=== PATIENT | female | born 1925 | race Caucasian/White ===

== ENCOUNTER 2017-05-02 16:04 | Inpatient (IN) | payer MEDICARE ==
--- NOTE | 2017-05-02 17:08 | RAD ---
FOUR VIEWS LEFT KNEE: Date: 05-02-17 Comparison: None. History: Fall, trauma, swelling, pain. FINDINGS: There is severe lateral compartment narrowing with lateral tibial plateau subchondral sclerosis and osteophyte formation. There is chondrocalcinosis of the medial compartment. There is no knee joint e ffusion. There is patellofemoral joint space narrowing with no displaced fracture or dislocation. Th ere is atherosclerotic calcification within the imaged left calf. IMPRESSION: Multilevel degenerative change. No displaced fracture or dislocation is seen. POS: ANA PAULA
--- NOTE | 2017-05-02 17:09 | RAD ---
THREE VIEWS RIGHT ANKLE: Indication: Fall, right ankle pain. FINDINGS: No acute fracture or subluxation is evident. There is soft tissue swelling of the ankle and hindfoot . Enthesopathic changes are seen of the calcaneus. Vascular calcifications are seen within the soft tissues. IMPRESSION: No acute osseous abnormality. POS: ANA PAULA
--- NOTE | 2017-05-02 17:11 | RAD ---
THREE VIEWS LEFT ANKLE: Date: 05-02-17 Comparison: None. History: Trauma, pain. FINDINGS: There is a transverse mildly distracted fracture at the base of the medial malleolus. There is an ob liquely oriented mildly displaced comminuted distal left fibular fracture extending into the distal left tibiofibular interspace. There is associated soft tissue swelling. Lateral exam demonstrates no evidence for dislocation. There is enthesophyte formation at the origin of the plantar aponeurosis and insertion of the Achilles tendon. IMPRESSION: Fracture deformities involving the distal left fibula/lateral malleolus and medial malleolus as abov e. Post reduction imaging and orthopedic consultation advised. POS: ANA PAULA
[2017-05-02] MEDS ORDERED: Acetaminophen 500 MG TAB ONE (17:17)
[2017-05-02] MEDS ORDERED: Ondansetron HCl/PF 4 MG/2 ML Vial ONE (17:25)
[2017-05-02] MEDS ORDERED: CEFAZOLIN/Water 2 GM/20 ML SYRINGE SLOW IVP SCH (19:30)
--- NOTE | 2017-05-02 19:37 | CON ---
DATE OF CONSULTATION: 05/02/2017 PRINCIPAL DIAGNOSIS: 1. Left trimalleolar ankle fracture. 2. Right lateral malleolus fracture. BRIEF HISTORY OF PRESENT ILLNESS: Patient is an 89-year-old lady who resides at [facility]. Earlier today, she sustained a ground level fall injuring both ankles. Upon arrival at [place], she was found to have gross deformity of the left ankle as well as swelling of the late ral ankle. X-rays were obtained and initially read as a left ankle with bimalleolar fracture; [facility], on closer inspection, this is a trimalleolar ankle fracture. She was also read as having a norm al right ankle; however, on evaluation found to have a nondisplaced fracture of the posterior aspect of the lateral malleolus. Patient did have a splint applied to the left ankle and orthopedic consu ltation requested for this pleasant lady who is being admitted to the trauma service. PAST MEDICAL HISTORY: Remarkable for hyperlipidemia. PAST SURGICAL HISTORY: Includes hysterectomy, appendectomy, and left wrist surgery. MEDICATIONS: Include Crestor, Wellbutrin, Xanax, clonazepam. ALLERGIES: FLOXIN and TRAMADOL. FAMILY HISTORY: Noncontributory. SOCIAL HISTORY: She is a nonsmoker, denies alcohol or recreational drug use. REVIEW OF SYSTEMS: Denies recent fevers, chills or sweats. Denies chest pain or shortness breath. Denies numbness or tingling in the lower extremities. PHYSICAL EXAMINATION: VITAL SIGNS: Temperature 98, heart rate of 93, respiratory rate of 20, and blood pressure of 160/74 . HEENT: Atraumatic, normocephalic. HEART: Shows a regular rate and rhythm with a 2/6 systolic ejection murmur. LUNGS: Clear to auscultation bilaterally with good breath sounds. ABDOMEN: Flat with normal bowel sounds. She is nontender. Her pelvis is stable. EXTREMITIES: Remarkable for bilateral upper extremities that are without deformity. She has intact sensation in the radial, median, and ulnar distributions bilaterally. Lower extremities remarkable for atraumatic hip and knee. She is found to have a left ankle with significant swelling medially and laterally, although I do not think this will be an issue to prevent surgery. She was found to h ave intact sensation to palpation over both dorsal and plantar surfaces of the foot. She has a 1+ d orsalis pedis pulse. She has tenderness to palpation over both medial and lateral malleoli. The [facility] lower extremity is also with atraumatic hip and knee. The ankle is remarkable for crepitation a t the lateral malleolus posteriorly. She is nontender to palpation at the deltoid ligament or media l malleolus. She has intact sensation dorsally and on the plantar surface 1+ dorsalis pedis pulse. X-RAYS: Three-view x-ray of the left ankle is remarkable for a trimalleolar ankle fracture and 3 vi ew x-ray of the right ankle to my reading is remarkable for a very small posterior aspect of the lat eral malleolus fracture with no displacement, no widening of the mortise and no lateral translation of the talus within the mortise. LABORATORY DATA: No labs are available at this time. We will obtain a CBC, chemistry panel and PT, PTT. EKG: Twelve-lead EKG has been ordered, but not performed yet. ASSESSMENT: The patient is a pleasant 89-year-old lady status post ground level fall sustaining a l eft trimalleolar ankle fracture and a nondisplaced small fracture of the right lateral malleolus. PLAN: At this time, the patient will be admitted. I have asked that the right ankle be placed in a walker boot. She may be weightbearing as tolerated on this ankle. We will plan on proceeding to [facility] operating room tomorrow afternoon for open reduction internal fixation of the left ankle. Today, I discussed with patient and family the risks and benefits of this procedure. The risks include, b ut are not limited to bleeding, infection, nerve injury, DVT, PE, loss of limb or life. Family and patient appeared comfortable with our discussion and plan.
[2017-05-02 19:49] LABS: #Basophils 0.1 thou/uL (0.0-0.2); #Lymphocytes 1.8 thou/uL (1.20-3.40); #Monocytes 0.7 thou/uL (0.11-0.59); #Neutrophils 6.5 thou/uL (1.40-6.50); %Basophils 0.6 % (0.0-1.0); %Eosinophils 0.2 % (0.0-10.0); %Lymphocytes 20.1 % (21.0-51.0); %Monocytes 7.2 % (0.0-10.0); Hematocrit 41.6 % (36.0-47.0); Mean Platelet Volume 8.5 fL (7.4-10.4); Red Blood Cell (RBC) Count 4.38 mill/uL (4.20-5.40); White Blood Cell (WBC) Count 9.1 thou/uL (4.8-10.8)
[2017-05-02 19:55] LABS: PTT 34.6 SEC (22.9-36.1); Prothrombin Time 12.9 SEC (12.0-14.7)
[2017-05-02 20:08] LABS: ALT (SGPT) 12 U/L (8-55); AST (SGOT) 14 U/L (5-34); Alkaline Phosphatase 69 U/L (40-150); Anion Gap 17 mmol/L (10-20); BUN (Urea Nitrogen) 15 mg/dL (9.8-20.1); Bilirubin, Total 0.5 mg/dL (0.2-1.2); Calc. Creatinine Clearance 0 mL/min (70-130); Calcium 9.7 mg/dL (7.8-10.44); Carbon Dioxide 22 mmol/L (23-31); Chloride 103 mmol/L (98-107); Estimated GFR-MDRD 65; Globulin 3.1 g/dL (2.4-3.5); Protein, Total 6.9 g/dL (6.0-8.3)
[2017-05-02] MEDS ORDERED: Ondansetron ODT 4 MG TAB SL PRN (20:44)
[2017-05-02] MEDS ORDERED: Ondansetron HCl/PF 4 MG/2 ML Vial IVP PRN ×2 (20:44→20:49)
[2017-05-02] MEDS ORDERED: hydrALAZINE 20 MG/ML VIAL SLOW IVP PRN (20:49)
[2017-05-02] MEDS ORDERED: Dextrose 50% Abboject 50 ML SYRINGE SLOW IVP PRN (20:49)
[2017-05-02] MEDS ORDERED: Ondansetron ODT 4 MG TAB PO PRN (20:49)
[2017-05-02] MEDS ORDERED: Dextrose 5% in Water 1,000 ML IV PRN (20:49)
--- NOTE | 2017-05-02 20:52 | RAD ---
FRONTAL VIEW CHEST: Indication: Pre-operative evaluation. FINDINGS: There is hyperinflation of the lungs with interstitial prominence bilaterally. The cardiac silhouett e is accentuated by spinal curvature and portable frontal technique. There is diffuse osseous demine ralization and degenerative change. Vascular calcification is present. IMPRESSION: Chronic interstitial opacities in each lung without evidence of lobar consolidation. POS: [facility]
--- NOTE | 2017-05-02 20:54 | RAD ---
LEFT ANKLE THREE VIEWS: Indication: Post splint evaluation. FINDINGS: There is a displaced and angulated distal fibular fracture. There is a displaced medial malleolar fr acture, and a posterior malleolar fracture. Overlying splint limits detail. IMPRESSION: Splinted distal tibial and fibular fractures. POS: ANA PAULA
[2017-05-02] MEDS: Famotidine/PF 20 mg/2ml Vial SLOW IVP SCH (21:37)
[2017-05-02] MEDS: Morphine PF 1 MG/ML SYR IV PRN (21:37)
[2017-05-02] MEDS: Sodium Chloride 0.9% 1,000 ML IV SCH (21:39)
[2017-05-02] MEDS: Famotidine 20 MG TAB PO SCH (23:25)
[2017-05-02] MEDS: MORPHINE 10 MG/ML SYRINGE IV PRN (23:34)
[2017-05-03] MEDS: MORPHINE 10 MG/ML SYRINGE IV PRN (02:01)
[2017-05-03 03:01] VITALS: BMI 26.6
[2017-05-03] MEDS ORDERED: diphenhydrAMINE 50 MG/ML VIAL IVP PRN (04:19)
[2017-05-03] MEDS ORDERED: diphenhydrAMINE 12.5 MG/5 ML UDCUP PO PRN (04:19)
[2017-05-03] MEDS: Morphine PF 1 MG/ML SYR IV PRN (04:35)
[2017-05-03 04:57] LABS: #Eosinphils 0.1 thou/uL (0.0-0.7); #Lymphocytes 2.3 thou/uL (1.20-3.40); #Monocytes 0.7 thou/uL (0.11-0.59); #Neutrophils 3.6 thou/uL (1.40-6.50); %Basophils 0.5 % (0.0-1.0); %Eosinophils 0.9 % (0.0-10.0); %Lymphocytes 33.9 % (21.0-51.0); %Monocytes 10.8 % (0.0-10.0); Hematocrit 36.2 % (36.0-47.0); Mean Platelet Volume 8.4 fL (7.4-10.4); Red Blood Cell (RBC) Count 3.78 mill/uL (4.20-5.40); White Blood Cell (WBC) Count 6.7 thou/uL (4.8-10.8)
--- NOTE | 2017-05-03 05:07 | HP-2 ---
DATE OF ADMISSION: 05/02/2017 ATTENDING PHYSICIAN: Dr. Antony Gross CHIEF COMPLAINT: Fall. HISTORY OF PRESENT ILLNESS: This is a pleasant 89-year-old woman who resides at [facility]. She reports that she had a fall earlier today , whereby she injured both ankles. She cannot recall the exact mechanism of the fall. The patient does currently use a walker. She had a fall 2 weeks ago and was using a cane at that time. It was recommended that she use a walker multimedia technician to avoid recurrent falls. Upon arrival at [place], she was found to have gross deformity of the left ankle as well as swelling to the lateral ankle. X-rays revealed left trimalleolar ankle fracture. Additionally, she was found to have a nondisplaced fracture of the posterior aspect of the lateral malleolus on the right. The patient is to be admitted to the Trauma Service. Orthopedic surgeon was consulted and evaluated the patient. The patient was placed in a splint on the left lower extremity and a boot on the right lower extremity. She will be admitted to the surgical floor with plans for surgery tomorrow. PAST MEDICAL HISTORY: 1. Anxiety. 2. Hyperlipidemia. PAST SURGICAL HISTORY: 1. Tonsillectomy. 2. Hysterectomy. 3. Appendectomy. 4. Left wrist surgery. MEDICATIONS: 1. Crestor 2.5 mg oral once daily at bedtime. 2. Wellbutrin 300 mg oral once daily. 3. Xanax 0.25 mg b.i.d. 4. Clonazepam 0.25 mg oral b.i.d. ALLERGIES: 1. AFLOXICIN. 2. TRAMADOL. FAMILY HISTORY: Noncontributory. SOCIAL HISTORY: The patient denies tobacco, alcohol or recreational drug use. REVIEW OF SYSTEMS: A 12 point review of systems was performed, all are negative except as indicated below. The patient endorses a moderate amount of pain in left ankle and a mild amount of pain in right ankle. She denies any pain elsewhere. Additionally, she denies fevers, chills, chest pain, shortness of breath, nausea, vomiting or numbness and tingling in the lower extremities. PHYSICAL EXAMINATION: VITAL SIGNS: Temperature 98 degrees Fahrenheit, heart rate of 93, respiratory rate of 20, and blood pressure 160/74. HEENT: Head is atraumatic, normocephalic. CARDIOVASCULAR: Regular rate and rhythm with 3/6 systolic ejection murmur with radiation to the axilla. RESPIRATORY: Lungs clear to auscultation bilaterally. No acute respiratory distress. Equal rise and fall of chest. ABDOMEN: Nontender to palpation. Normoactive bowel sounds, nondistended. Pelvis is stable. EXTREMITIES: Normal inspection of bilateral upper extremities, neurovascularly intact. On exam left ankle was splinted and right lower extremity was already placed in a boot. Bilateral lower extremities neurovascularly intact. The patient has dorsalis pedal pulses 1+. NEUROLOGIC: No focal deficits appreciated. Neurovascularly intact x4. X-RAYS: 1. Chest x-ray, chronic interstitial opacities in each lung without evidence of lobar consolidation. 2. Left knee x-ray, multilevel degenerative changes. No displaced fracture or dislocation seen. 3. Three view x-ray of left ankle remarkable for trimalleolar ankle fracture. 4. Three view x-ray of right ankle remarkable for very small posterior aspect lateral malleolus fracture with no displacement, no widening of the mortise, and no lateral translation of the talus within the mortise. LABORATORY DATA: 1. CBC reveals a white blood cell count 9.1, hemoglobin 13.8, hematocrit 41.6, platelet count 270. 2. CMP reveals sodium 138, potassium 4.0, chloride 103, bicarbonate 22, BUN 15 , creatinine 0.83, glucose 117, calcium 9.7, total bilirubin 0.5, AST 14, ALT 12 , alkaline phosphatase 69. Serum total protein 6.9. 3. PT 12.9, INR 1.0, PTT 34.6. ASSESSMENT: 1. Status post ground level fall. 2. Left trimalleolar ankle fracture. 3. Nondisplaced small fracture of right lateral malleolus. 4. Anxiety. 5. Hyperlipidemia. PLAN: The patient was admitted to the Trauma Service. She has been evaluated by Dr. Linton, orthopedic surgeon and there are plans to pursue surgery tomorrow. Currently, the left ankle was placed in a splint and the right ankle was placed in a walking boot. She was approved for weightbearing on the right ankle. Plan for pain control pre and postoperatively. We will continue to monitor the patient during the course of her hospital stay. The patient will be continued on home medications once no longer n.p.o. We will plan to facilitate inpatient rehab versus a short-term nursing facility. The patient was seen and evaluated with MARY ANN Quinones. The above plan was discussed with Dr. Antony Gross and he is in agreement. CAMERON
[2017-05-03 05:19] LABS: Anion Gap 9 mmol/L (10-20); BUN (Urea Nitrogen) 15 mg/dL (9.8-20.1); Calc. Creatinine Clearance 49 mL/min (70-130); Calcium 9.1 mg/dL (7.8-10.44); Carbon Dioxide 27 mmol/L (23-31); Chloride 106 mmol/L (98-107); Estimated GFR-MDRD 65
[2017-05-03] MEDS: Sodium Chloride 0.9% 1,000 ML IV SCH ×2 (07:53→08:14)
[2017-05-03] MEDS: Famotidine 20 MG TAB PO SCH ×2 (08:05→22:22)
[2017-05-03] MEDS: Famotidine/PF 20 mg/2ml Vial SLOW IVP SCH ×2 (08:08→22:07)
[2017-05-03] MEDS ORDERED: MORPHINE 10 MG/ML SYRINGE IV SCH (11:30)
[2017-05-03] MEDS ORDERED: Fentanyl 100 MCG/2 ML VIAL ONE ×3 (14:06→16:21)
[2017-05-03] MEDS ORDERED: Midazolam HCl 2 mg/2 ml Vial ONE (14:32)
[2017-05-03] MEDS ORDERED: Dexamethasone 4 mg/ml Vial ONE (14:32)
[2017-05-03] MEDS ORDERED: CEFAZOLIN/Water 2 GM/20 ML SYRINGE ONE (15:01)
[2017-05-03] MEDS ORDERED: Zolpidem Tartrate 5 MG TAB PO PRN (15:23)
[2017-05-03] MEDS ORDERED: Ondansetron HCl/PF 4 MG/2 ML Vial IVP PRN (15:23)
[2017-05-03] MEDS ORDERED: Promethazine HCl 25 MG/ML VIAL IM PRN (15:23)
[2017-05-03] MEDS ORDERED: traMADol HCl 50 MG TAB PO PRN ×2 (15:23)
[2017-05-03] MEDS ORDERED: Ropivacaine 0.2% 550 ML 550 ML NERVE BLCK SCH (15:23)
[2017-05-03] MEDS ORDERED: HYDROcodone/Acetaminophen 10/325 mg Tablet PO PRN ×2 (15:23)
[2017-05-03] MEDS ORDERED: Fentanyl 100 MCG/2 ML VIAL IV PRN (15:24)
[2017-05-03] MEDS ORDERED: Ropivacaine 0.2% HCl/PF 20 ML ONE (15:28)
[2017-05-03] MEDS ORDERED: Neomycin-Polymyxin 1 ML AMP ONE (16:26)
[2017-05-03] MEDS ORDERED: Bupivacaine PF 0.5% 30 ML VIAL ONE (16:26)
[2017-05-03] MEDS ORDERED: Ondansetron HCl/PF 4 MG/2 ML Vial ONE (16:51)
[2017-05-03] MEDS ORDERED: Propofol 200 MG/20 ML VIAL ONE (16:51)
[2017-05-03] MEDS ORDERED: Lidocaine 1% PF 5 ML VIAL ONE (16:51)
--- NOTE | 2017-05-03 21:29 | PRG ---
DATE OF SERVICE: 05/03/2017 ATTENDING PHYSICIAN: Antony Gross D.O. SUBJECTIVE: This is an 89-year-old female, who fell from a ground-level fall, injuring the both joao ateral ankles. OBJECTIVE: VITAL SIGNS: Temperature 97.5, heart rate 85, respiratory rate 18, 97%, 100/64 blood pressure. GENERAL: No acute distress. Appears to be comfortable. PULMONARY: Clear bilaterally via auscultation. ABDOMEN: Soft, nontender, nondistended. CARDIOVASCULAR: S1, S2, regular rate and rhythm. EXTREMITIES: Neurovascularly intact x4. LABORATORY FINDINGS: WBC 6.7, hemoglobin is 12.2, hematocrit 32.2, and platelet count 240. Order Entry Administrator ry: Sodium 138, potassium 3.8, chloride 106, bicarbonate 27, BUN 15, creatinine 0.83. Glucose 123. ASSESSMENT AND PLAN: An 89-year-old female with status post fall, bilateral ankle injuries op erative fixation today with Orthopedics. The patient postoperatively will manage her pain. We will optimize and continue to maintain her medical management at this time. No other acute events were noted. The patient was seen by Dr. Gross at bedside, who agrees with the above plan.
[2017-05-03] MEDS ORDERED: CEFAZOLIN 1 GM VIAL SLOW IVP SCH (22:00)
[2017-05-03] MEDS ORDERED: Sodium Chloride 0.9% 1,000 ML IV SCH (23:45)
[2017-05-04] MEDS: Ketorolac Tromethamine 30 MG/ML VIAL IVP PRN ×2 (01:19→08:22)
[2017-05-04] MEDS: CEFAZOLIN 1 GM, Syringe 2.5 ML in Sterile Water 7.5 ML SLOW IVP SCH ×3 (01:59→17:48)
[2017-05-04] MEDS ORDERED: Hydrocortisone Sod Succ/PF 100 mg/2 ml Vial IVP SCH (02:00)
[2017-05-04] MEDS: Sodium Chloride 0.9% 1,000 ML IV SCH ×3 (05:01→21:56)
--- NOTE | 2017-05-04 08:06 | RAD ---
INTRAOPERATIVE FLUOROSCOPY: History: Fracture. ORIF. Exposure: 0.489 mGy*cm\S\2, 32 seconds. FINDINGS: Three fluoroscopic images demonstrate internal fixation hardware at the level of the left distal tib ia and fibula. IMPRESSION: Internal fixation hardware. POS: ANA PAULA
[2017-05-04] MEDS: Famotidine/PF 20 mg/2ml Vial SLOW IVP SCH (08:14)
[2017-05-04] MEDS ORDERED: traMADol HCl 50 MG TAB PO PRN (09:13)
[2017-05-04] MEDS: Famotidine 20 MG TAB PO SCH ×2 (10:11→19:56)
[2017-05-04] MEDS: traMADol HCl 50 MG TAB PO SCH ×2 (10:22→17:21)
[2017-05-04] MEDS: Acetaminophen 325 MG TAB PO SCH ×3 (12:04→21:56)
[2017-05-04] MEDS: Hydrocortisone Sod Succ/PF 100 mg/2 ml Vial IVP SCH ×2 (12:05→17:32)
--- NOTE | 2017-05-04 12:12 | PRG ---
DATE OF SERVICE: 05/04/2017 SUBJECTIVE: She is postoperative day 1 from open reduction and internal fixation left ankle. Overn ight she had hypertensive events that was treated with fluid resuscitation as well as some administr ation of albumin and hydrocortisone due to her having suspected adrenal insufficiency. Otherwise pa in is controlled. She is doing well overall now since the blood pressure has leveled out. OBJECTIVE: VITAL SIGNS: Temperature 97.9, heart rate 87, respirations 12, O2 sat 97% on 2 liters oxygen, blood pressure 94/57. GENERAL: In no acute distress at this time. LUNGS: Clear bilaterally to auscultation. CARDIOVASCULAR: S1 and S2. Regular rate and rhythm. ABDOMEN: Soft, nontender, nondistended. ASSESSMENT AND PLAN: This is an 89-year-old female status post fall, postoperative day 1 open reduc tion and internal fixation ankle. We will have Rehab and PT, OT seeing her. We will continue hydro cortisone about 25 IV q.6h., manage her fluid status. Continue to encourage p.o. Blood pressure se ems to be stable. Will have a.m. labs tomorrow. The patient has been seen by Dr. Gross and he agre es with the above plan.
[2017-05-04] MEDS ORDERED: HYDROcodone/Acetaminophen 5/325 mg Tablet PO PRN ×2 (18:40→18:41)
[2017-05-05] MEDS: Hydrocortisone Sod Succ/PF 100 mg/2 ml Vial IVP SCH ×2 (00:24→05:30)
[2017-05-05] MEDS: Acetaminophen 325 MG TAB PO SCH ×4 (04:13→22:22)
[2017-05-05 05:40] LABS: #Lymphocytes 1.2 thou/uL (1.20-3.40); #Monocytes 0.7 thou/uL (0.11-0.59); #Neutrophils 5.9 thou/uL (1.40-6.50); %Basophils 0.2 % (0.0-1.0); %Eosinophils 0.2 % (0.0-10.0); %Lymphocytes 15.3 % (21.0-51.0); %Monocytes 8.9 % (0.0-10.0); Hematocrit 33.9 % (36.0-47.0); Mean Platelet Volume 8.8 fL (7.4-10.4); Red Blood Cell (RBC) Count 3.51 mill/uL (4.20-5.40); White Blood Cell (WBC) Count 7.8 thou/uL (4.8-10.8)
[2017-05-05 06:01] LABS: Anion Gap 11 mmol/L (10-20); BUN (Urea Nitrogen) 16 mg/dL (9.8-20.1); Calc. Creatinine Clearance 57 mL/min (70-130); Calcium 8.8 mg/dL (7.8-10.44); Carbon Dioxide 20 mmol/L (23-31); Chloride 111 mmol/L (98-107); Estimated GFR-MDRD 76; Magnesium 1.8 mg/dL (1.6-2.6); Phosphorus 2.1 mg/dL (2.3-4.7)
[2017-05-05] MEDS: Sodium Chloride 0.9% 1,000 ML IV SCH (08:09)
[2017-05-05] MEDS: Famotidine 20 MG TAB PO SCH ×2 (08:11→22:16)
[2017-05-05] MEDS: Enoxaparin Sodium 40 MG/0.4 ML SYRINGE SC SCH (08:12)
[2017-05-05] MEDS ORDERED: Ibuprofen 800 MG TAB PO PRN (08:32)
[2017-05-05] MEDS ORDERED: Magnesium Citrate 300 ML BOT PO SCH (09:00)
[2017-05-05] MEDS: clonazePAM 0.5 MG TAB PO SCH ×3 (09:25→22:15)
[2017-05-05] MEDS: Polyethylene Glycol 3350 17 GM Packet PO SCH (09:26)
[2017-05-05] MEDS: Senokot S 8.6-50 MG TAB PO SCH ×3 (09:27→22:18)
[2017-05-05] MEDS: Bupropion 150 MG XL TAB PO SCH (10:41)
[2017-05-05] MEDS ORDERED: Furosemide 20 MG/2 ML VIAL SLOW IVP SCH (11:45)
[2017-05-05 12:23] LABS: Troponin I 0.031 ng/mL (< 0.028)
--- NOTE | 2017-05-05 12:49 | RAD ---
PORTABLE AP CHEST RADIOGRAPH: Date: 05-05-17 History: Elevated BMP. Tachycardia. Acute shortness of breath. Comparison: 05-02-17 FINDINGS: There has been interval development of pleural and parenchymal changes at the left lung base, likely related to moderate sized left pleural effusion and atelectasis. There is blunting of the right lat eral costophrenic angle suggesting a tiny right pleural effusion with atelectasis at the right lung base. Cardiac silhouette is obscured at the left lung base. Pulmonary vasculature is within normal l imits. Linear densities overlie the lateral right chest, probably related to overlying skin folds. V ascular calcifications are seen in the thoracic aorta. There is right convex scoliosis of the thorac ic spine. No other interval change. IMPRESSION: Interval development of bilateral pleural effusions with moderate sized left pleural effusion and ti ny right pleural effusions with associated atelectasis. POS: ANA PAULA
--- NOTE | 2017-05-05 13:36 | CON ---
DATE OF CONSULTATION: 05/05/2017 PRIMARY CARE PHYSICIAN: Leticia Rust M.D. REQUESTING PHYSICIAN: Antony Gross DO REASON FOR CONSULTATION: Medical management, shortness of breath. HISTORY OF PRESENT ILLNESS: Ms. Ornelas is a very pleasant 89-year-old white female who was admitted on 05/02/2017 overnight after falling and developing acute bilateral ankle pain. On evaluation in the ER, she was found to have left ankle deformity and x-rays revealed a trimalleolar fracture. She was admitted to the Trauma Service, Orthopedics was consulted and Dr. Linton did see her. She carlisle s had recent history of falls, the last being 2 weeks prior to admission. After orthopedic evaluation, she was taken to the operating room on 05/03/2017 for open reduction in ternal fixation. Intraoperative course was unremarkable. However, that night, postoperatively, she developed hypotension and required fluids resuscitation. She received 1 liter of bolus and has been on 100 mL per hour maintenance fluids since admission. Review of her I's and O's show total of 5.5 liters in's of admission and a net balance is around 2-1 /2 liters positive. She developed shortness of breath overnight 05/03/2017 to 05/04/2017. She has had increased heart r ate. They initially thought it might be her anxiety; however, this has not resolved and so we were consulted for recommendations. They did check a BNP which was elevated over 1000. She is also note d to have an increased heart rate and to be visibly dyspneic on exertion with orthopnea. EKG was done prior to my arrival, showed a sinus tachycardia with frequent PVCs. PAST MEDICAL HISTORY: 1. Anxiety with hyperlipidemia. 2. Denies any history of heart problems, high blood pressure, or other chronic medical problems. PAST SURGICAL HISTORY: Includes, 1. Total hysterectomy. 2. Tonsillectomy remotely. 3. Appendectomy remotely. 4. Left wrist repair. HOME MEDICATIONS: 1. Crestor 2.5 mg p.o. at bedtime. 2. Wellbutrin likely XR 300 mg daily. 3. Xanax 0.25 mg p.o. b.i.d. p.r.n. anxiety. 4. Klonopin 0.25 mg p.o. b.i.d. ALLERGIES: To OFLOXACIN and TRAMADOL. FAMILY HISTORY: Negative for clotting or bleeding disorder. No immune dysfunction. SOCIAL HISTORY: Negative for habits x3. REVIEW OF SYSTEMS: A 10-point review of systems was performed, negative for all other systems excep t as stated as per HPI. PHYSICAL EXAMINATION: VITAL SIGNS: Temperature current is 97.8, current pulse in the 120s, was in the 80s prior, blood pr essure 147/80, respiratory rate 28 from 16 and satting 94% on 2 liters nasal cannula. GENERAL: She is awake. She is alert. She is oriented. She is a well-developed, well-nourished, w brennen female who appears to be in no acute distress. HEENT: Normocephalic, atraumatic. Pupils equal, round, react to light bilaterally, mucous membrane s is moist. There is no visible lesion, no thrush. NECK: Supple, without lymphadenopathy, no JVD, no thyromegaly. She has normal carotid upstrokes wi thout bruits. LUNGS: Clear to auscultation anteriorly. She has some decreased breath sounds in the bilateral bas es on the left more than the right. I do not appreciate crackles. CARDIOVASCULAR: She is tachycardic and regular. She has a faint holosystolic murmur best heard at the apex. It does not radiate anywhere. ABDOMEN: Soft, is nontender, nondistended with normoactive bowel sounds. There is no rebound, rigi dity or guarding. EXTREMITIES: No cyanosis, no clubbing. Trace bilateral lower extremity edema. Her left ankle post op dressing is clean, dry, and intact without strikethrough. NEUROLOGIC: Cranial nerves II-XII grossly intact without any focal neurologic deficits. SKIN: Warm, moist well perfused. She has no rashes or lesions. LABORATORY DATA: Basic metabolic profile today is normal. Sodium 138, potassium 3.6, creatinine 0. 72, magnesium 1.8, and phosphorus 2.1, glucose of 138. CBC showed white count of 7.8, hemoglobin 13 .8 on admission down to 12.2 postop, 11.2 today. Her hematocrit is 33.9, platelets 204,000. BNP el evated at 1001.3. Chest x-ray ordered after I saw her, shows moderate left and trace or small right pleural effusion a nd increased pulmonary vasculature/congestion. There is some parenchymal pulmonary edema. Icy flui d. My interpretation of icy fluid in the major and the right minor fissures. Laurie B lines are pr esent. ASSESSMENT AND PLAN: 1. Volume overload: We will get a 2D echocardiogram to assess cardiac function. I think given her elevated BNP, and history of regurgitant valve, I think simply she may just be in a left-sided hear t failure. She does not have a history of heart problems or heart failure. Check cardiac biomarker s, 2D echocardiogram, and we are going to give her a 20 mg dose of IV Lasix now and monitor her outp ut. If she is not improved by this afternoon, we will transfer to telemetry for closer monitoring. I think in the process of having low blood pressure postop, getting fluid resuscitated, was just to o much for this particular patient's system. We will try to correct her fluid overload. 2. Tachycardia: Initial concern was for atrial fibrillation with rapid ventricular response; howev er, EKG shows sinus tachycardia with premature ventricular contractions. We will diurese her and de crease afterload, hopefully will decrease her elevated right-sided pressure with elevated BNP. 3. History of anxiety: Well controlled. 4. Hyperlipidemia, on Crestor. We will follow on the results. Thank you very much for this consult. I will follow along with you.
--- NOTE | 2017-05-05 13:39 | PRG ---
DATE OF SERVICE: 05/05/2017 SUBJECTIVE: There were no acute events overnight. The patient continued to do well. No complaints of chest pain or shortness of breath overnight. This morning, though, the patient is somewhat tach ypneic. She is reporting she is breathing faster than normal, but \\\\"does not feel like she is bein g smothered\\\\". She does appear to be anxious as well. OBJECTIVE: VITAL SIGNS: Temperature 97.0, heart rate 85, respirations 19, O2 sat 93%, blood pressure 128/76. GENERAL: She does appear to be in mild distress. She is tachypneic. She is laying in the hospital bed. HEENT: Atraumatic and normocephalic. NECK: No JVD. No masses. Trachea midline. PULMONARY: She is clear bilaterally. CARDIOVASCULAR: She has a regular rate. She does have positive murmur. ABDOMEN: Soft, nontender, nondistended. Pulses stable. EXTREMITIES: Bilateral lower extremities; one is in a splint and the other one is in a boot. LABORATORY FINDINGS: Hemoglobin 11.9, white count 10.8, hematocrit 33.9, platelet count 204. Chemi stries; sodium 138, potassium 3.6, chloride 111, bicarb 20, BUN 16, creatinine 0.72, glucose 138. B PERISHABLE FRUIT INSPECTOR was ordered, shown to have 1001, troponin 0.031 ASSESSMENT AND PLAN: This is an 89-year-old female status post ground level fall with bilateral leg fractures, postoperative day 2 from open reduction and internal fixation of left ankle. The plan f or today would be consulting [facility] for medical management regarding congestive heart fail ure due to volume overload. We will continue to follow along with their recommendations. Her pain has been optimized. She has been accepted to Rehab and pending once she is medically stable to be t ransferred over. Discontinue her Soto. We are now awaiting bowel function. The patient has been seen by Dr. Bean at bedside. He agrees with the above plan.
[2017-05-05] MEDS ORDERED: Hydrocortisone 10 mg Tablet PO SCH (14:00)
[2017-05-05 18:27] LABS: Troponin I 0.078 ng/mL (< 0.028)
[2017-05-05] MEDS: ALPRAZolam 0.25 MG TAB PO SCH (22:15)
[2017-05-06 02:08] LABS: Troponin I 0.064 ng/mL (< 0.028)
[2017-05-06] MEDS: Acetaminophen 325 MG TAB PO SCH ×4 (04:58→21:27)
[2017-05-06 05:48] LABS: #Lymphocytes 1.4 thou/uL (1.20-3.40); #Monocytes 1.2 thou/uL (0.11-0.59); #Neutrophils 7.3 thou/uL (1.40-6.50); %Basophils 0.4 % (0.0-1.0); %Eosinophils 0.1 % (0.0-10.0); %Lymphocytes 14.4 % (21.0-51.0); %Monocytes 11.8 % (0.0-10.0); Red Blood Cell (RBC) Count 3.53 mill/uL (4.20-5.40)
[2017-05-06 06:04] LABS: Anion Gap 10 mmol/L (10-20); BUN (Urea Nitrogen) 12 mg/dL (9.8-20.1); Calc. Creatinine Clearance 67 mL/min (70-130); Calcium 8.8 mg/dL (7.8-10.44); Carbon Dioxide 27 mmol/L (23-31); Chloride 106 mmol/L (98-107); Estimated GFR-MDRD Greater than 90
[2017-05-06] MEDS: Furosemide 20 MG/2 ML VIAL SLOW IVP SCH (06:21)
[2017-05-06] MEDS: clonazePAM 0.5 MG TAB PO SCH ×2 (07:45→21:28)
[2017-05-06] MEDS: Bupropion 150 MG XL TAB PO SCH (07:45)
[2017-05-06] MEDS: ALPRAZolam 0.25 MG TAB PO SCH ×2 (07:47→21:28)
[2017-05-06] MEDS: Enoxaparin Sodium 40 MG/0.4 ML SYRINGE SC SCH (07:47)
[2017-05-06] MEDS: Famotidine 20 MG TAB PO SCH ×2 (07:47→21:27)
[2017-05-06] MEDS: Polyethylene Glycol 3350 17 GM Packet PO SCH (07:47)
[2017-05-06] MEDS: Senokot S 8.6-50 MG TAB PO SCH ×2 (07:48→22:24)
--- NOTE | 2017-05-06 17:11 | PDOC.PN ---
- Subjective Encounter Start Date: 05/06/17 Encounter Start Time: 09:30 Pt doing much better, with improved sats on 2L. RR down, HR down, vitals good. Echo pending No CP, no SOB, no N/V/D/C, no fevers or chills, some dry cough, no hemoptysis 10 point ROS perfrmed and neg for all except as per HPI - Objective Resuscitation Status: FULL MAR Reviewed: Yes Vital Signs & Weight: Vital Signs (12 hours) Temp Pulse Resp BP Pulse Ox 05/06/17 16:25 98.6 F 93 16 134/80 95 05/06/17 14:05 97 05/06/17 13:32 97 16 05/06/17 12:15 97.6 F 83 16 119/70 96 05/06/17 08:10 98.2 F 101 H 24 H 134/75 97 05/06/17 08:00 98.2 F 101 H 24 H 97 05/06/17 07:28 99 05/06/17 07:26 97 16 Weight Weight 150 lb 5.684 oz I&O: 05/05/17 05/06/17 05/07/17 06:59 06:59 06:59 Intake Total 3150 1080 Output Total 1850 650 Balance 1300 430 Result Diagrams: 05/06/17 04:54 05/06/17 04:54 Radiology Reviewed by me: Yes EKG Reviewed by me: Yes Phys Exam - Physical Examination Constitutional: NAD HEENT: PERRLA, moist MMs, sclera anicteric, oral pharynx no lesions Neck: no nodes, no JVD, supple, full ROM Respiratory: no wheezing, no rales, no rhonchi, clear to auscultation bilateral Cardiovascular: RRR, no significant murmur, no rub no ectopy today Gastrointestinal: soft, non-tender, no distention, positive bowel sounds Musculoskeletal: no edema, pulses present Neurological: non-focal, normal sensation, moves all 4 limbs Lymphatic: no nodes Psychiatric: normal affect, A&O x 3 Skin: no rash, normal turgor, cap refill <2 seconds Dx/Plan (1) Acute CHF (congestive heart failure) Code(s): I50.9 - HEART FAILURE, UNSPECIFIED Status: Acute Qualifiers: Congestive heart failure type: unspecified congestive heart failure type Qualified Code(s): I50.9 - Heart failure, unspecified Comment: follow up on Echo results. discussed with Dr Harkins, he will look into this (2) Volume overload Code(s): E87.70 - FLUID OVERLOAD, UNSPECIFIED Status: Resolved Qualifiers: Hypervolemia type: other Qualified Code(s): E87.79 - Other fluid overload Comment: form IV fluids given for hypotension post op. Markedly improved (3) Acute hypoxemic respiratory failure Code(s): J96.01 - ACUTE RESPIRATORY FAILURE WITH HYPOXIA Status: Acute Comment: Wean O2 (4) Trimalleolar fracture of left ankle Code(s): S82.852A - DISPLACED TRIMALLEOLAR FRACTURE OF LEFT LOWER LEG, INIT Status: Resolved Qualifiers: Encounter type: initial encounter Fracture type: closed Qualified Code(s) : S82.852A - Displaced trimalleolar fracture of left lower leg, initial encounter for closed fracture (5) Anxiety Code(s): F41.9 - ANXIETY DISORDER, UNSPECIFIED Status: Chronic (6) Postoperative hypotension Code(s): I95.89 - OTHER HYPOTENSION Status: Resolved - Plan cont current plan of care, plan discussed w/ family * .
--- NOTE | 2017-05-06 18:29 | PRG ---
DATE OF SERVICE: 05/06/2017 ATTENDING PHYSICIAN: Blayne Schaefer M.D. SUBJECTIVE: Mr. Ornelas is status post ORIF of left ankle fracture. She was progressing well postoperatively; however, she developed hypotension and required fluid resuscitation. She subsequently developed shortness of breath and increased heart rate. Hospital medicine physician was consulted and she was diuresed after which she had no further symptoms. This morning she appears to be comfortable and reports she is much better than yesterday. She does not complain of chest pain or shortness of breath. OBJECTIVE: GENERAL: Resting in bed in no acute distress. VITAL SIGNS: Temperature 98.2, pulse 101, respirations 24, O2 saturation 97%, blood pressure 134/75. HEENT: Atraumatic and normocephalic. NECK: No JVD, trachea midline. PULMONARY: Lungs clear bilaterally to auscultation. ABDOMEN: Soft, nontender. EXTREMITIES: Neurovascular intact. NEUROLOGIC: Awake and alert and oriented x3. ASSESSMENT AND PLAN: An 89-year-old female status post open reduction and internal fixation, left ankle. Hospital medicine consulted for fluid volume overload. The patient has been appropriately diuresed. Echo is pending. Plan is to discharge the patient to the rehab facility. We will discharge the patient once she is deemed medically stable to be transferred. Assessment and plan of care has been reviewed with trauma assessment. [facility]
[2017-05-07] MEDS: Acetaminophen 325 MG TAB PO SCH ×4 (04:31→21:35)
[2017-05-07 05:04] LABS: #Lymphocytes 1.1 thou/uL (1.20-3.40); #Monocytes 1.1 thou/uL (0.11-0.59); #Neutrophils 8.5 thou/uL (1.40-6.50); %Basophils 0.3 % (0.0-1.0); %Eosinophils 0.3 % (0.0-10.0); %Lymphocytes 9.9 % (21.0-51.0); %Monocytes 10.6 % (0.0-10.0); Hematocrit 33.5 % (36.0-47.0); Mean Platelet Volume 8.8 fL (7.4-10.4); Red Blood Cell (RBC) Count 3.48 mill/uL (4.20-5.40); White Blood Cell (WBC) Count 10.8 thou/uL (4.8-10.8)
[2017-05-07 05:13] LABS: Anion Gap 9 mmol/L (10-20); BUN (Urea Nitrogen) 13 mg/dL (9.8-20.1); Calc. Creatinine Clearance 67 mL/min (70-130); Calcium 8.6 mg/dL (7.8-10.44); Carbon Dioxide 28 mmol/L (23-31); Chloride 103 mmol/L (98-107); Estimated GFR-MDRD Greater than 90
[2017-05-07] MEDS: Furosemide 20 MG/2 ML VIAL SLOW IVP SCH (06:41)
[2017-05-07 07:44] LABS: Phosphorus 1.8 mg/dL (2.3-4.7)
[2017-05-07] MEDS ORDERED: K-Phos Neutral 250 MG TAB PO SCH (08:00)
[2017-05-07] MEDS: Famotidine 20 MG TAB PO SCH ×2 (08:37→20:22)
[2017-05-07] MEDS: Senokot S 8.6-50 MG TAB PO SCH ×2 (08:37→17:57)
[2017-05-07] MEDS: clonazePAM 0.5 MG TAB PO SCH ×2 (08:38→20:22)
[2017-05-07] MEDS: ALPRAZolam 0.25 MG TAB PO SCH ×2 (08:38→20:22)
[2017-05-07] MEDS: Enoxaparin Sodium 40 MG/0.4 ML SYRINGE SC SCH (08:39)
[2017-05-07] MEDS: Bupropion 150 MG XL TAB PO SCH (08:39)
[2017-05-07] MEDS: K-Phos Neutral 250 MG TAB PO SCH ×3 (09:07→17:54)
--- NOTE | 2017-05-07 11:20 | RAD ---
SINGLE VIEW OF THE CHEST: COMPARISON: 05/05/17. HISTORY: Hypoxia and pleural effusion. FINDINGS: A single view of the chest shows an enlarged cardiomediastinal silhouette. There is a small left pl eural effusion. Increased interstitial lung markings are present. Atherosclerotic calcifications a re seen in the aorta. IMPRESSION: Small left pleural effusion. POS: H
--- NOTE | 2017-05-07 13:09 | PDOC.PN ---
- Subjective Encounter Start Date: 05/07/17 Encounter Start Time: 09:00 Pt sen and exmained, discussed face to face iwth the trauma service and ortho ( Dr Linton). Pt looks less comfortable today. more SOB, breatihn gfast and [place]. HR 100. EKG being done. no fevers, no chills. Up with PT yesterday. boby okay.Didnt sleep well overnight due to nightmares. no n/V/D/C, no GI bleeding 10 point ROS performed and neg for all systems except as above - Objective Resuscitation Status: FULL MAR Reviewed: Yes Vital Signs & Weight: Vital Signs (12 hours) Temp Pulse Resp BP Pulse Ox 05/07/17 08:30 98.1 F 100 18 139/65 96 05/07/17 06:31 97 05/07/17 06:28 97 20 05/07/17 03:52 98.8 F 100 22 H 125/67 97 05/07/17 01:13 95 Weight Weight 150 lb 5.684 oz I&O: 05/06/17 05/07/17 05/08/17 06:59 06:59 06:59 Intake Total 1080 500 Output Total 650 Balance 430 500 Result Diagrams: 05/07/17 04:42 05/07/17 04:42 Radiology Reviewed by me: Yes EKG Reviewed by me: Yes Phys Exam - Physical Examination Constitutional: NAD HEENT: PERRLA, moist MMs, sclera anicteric, oral pharynx no lesions Neck: no nodes, no JVD, supple, full ROM Respiratory: no wheezing, no rales, no rhonchi, clear to auscultation bilateral improved aeration from admit, but sound less than yesterday tachy with frequent ectopy. musical 3-4/6 MARI clearly heard at left lat chest. diasolic murmur 3/6 heard RLSB Gastrointestinal: soft, non-tender, no distention, positive bowel sounds Musculoskeletal: no edema, pulses present no calf tenderness, no palpable cords on right, left in loyda and splint Neurological: non-focal, normal sensation, moves all 4 limbs Lymphatic: no nodes Psychiatric: normal affect, A&O x 3 Skin: no rash, normal turgor, cap refill <2 seconds Dx/Plan (1) Acute CHF (congestive heart failure) Code(s): I50.9 - HEART FAILURE, UNSPECIFIED Status: Acute Qualifiers: Congestive heart failure type: unspecified congestive heart failure type Qualified Code(s): I50.9 - Heart failure, unspecified Comment: Nl EF. mild diastolic dysfunction. increased Pulm artery pressure. mild to moderate , Mod to severe TR. BNP down to 600 (2) Volume overload Code(s): E87.70 - FLUID OVERLOAD, UNSPECIFIED Status: Resolved Qualifiers: Hypervolemia type: other Qualified Code(s): E87.79 - Other fluid overload Comment: form IV fluids given for hypotension post op. Markedly improved (3) Acute hypoxemic respiratory failure Code(s): J96.01 - ACUTE RESPIRATORY FAILURE WITH HYPOXIA Status: Acute Comment: Wean O2. More sOb, Stat portable CXR ordered: left effusion much improved, interstitial markings stalbe, less fluid (4) Trimalleolar fracture of left ankle Code(s): S82.852A - DISPLACED TRIMALLEOLAR FRACTURE OF LEFT LOWER LEG, INIT Status: Resolved Qualifiers: Encounter type: initial encounter Fracture type: closed Qualified Code(s) : S82.852A - Displaced trimalleolar fracture of left lower leg, initial encounter for closed fracture (5) Anxiety Code(s): F41.9 - ANXIETY DISORDER, UNSPECIFIED Status: Chronic (6) Postoperative hypotension Code(s): I95.89 - OTHER HYPOTENSION Status: Resolved - Plan cont current plan of care, plan discussed w/ family, respiratory therapy, incentive spirometry, out of bed/ambulate * .
--- NOTE | 2017-05-07 15:06 | PRG ---
DATE OF SERVICE: 05/07/2017 SUBJECTIVE: Marie Ornelas is an 89-year-old female, who is status post open reduction internal fi xation of the left ankle. She had perioperative hypotension, requiring fluid resuscitation. She bowling bsequently developed pulmonary edema. Hospital Medicine was consulted and she has been diuresed. T his morning, her vital signs are stable, her laboratory values have improved; however, the patient r eports not feeling well. She states that she had a difficult night secondary to nightmares. She is concerned about transferring and feels as though she is fatigued and out of energy. OBJECTIVE: VITAL SIGNS: Temperature 98.1, pulse 100, respirations 18, O2 sat 96% on 2 liters nasal cannula, bl ood pressure 139/65. GENERAL: A well-developed, elderly appearing female, in no acute distress, resting in bed. PULMONARY: Normal work of breathing. Coarse rhonchi bilaterally, which clear with cough. CARDIOVASCULAR: Tachycardic. Systolic murmur noted. No rubs or gallops. GASTROINTESTINAL: Soft, nontender, nondistended. EXTREMITIES: Moves all extremities x4. Ortho dressing is in place. NEUROLOGIC: No focal deficit noted. ASSESSMENT: 1. Status post ground-level fall. 2. Left trimalleolar ankle fracture. 3. Right lateral malleolar fracture. 4. Anxiety. 5. Heart failure. 6. Valvular heart disease. PLAN: Patient tachycardic into the one teens during my evaluation. She was recently told by Anesth esia that the nerve block was going to be removed today. Check EKG. Check chest x-ray. Patient wa s concurrently evaluated with Orthopedic Surgery and Hospital Medicine. Discussed with both teams. Await medical clearance for discharge to inpatient rehabilitation. The patient's daughter is at be dside and all questions were answered at the time of this dictation. Patient was discussed with tra danitza attending.
[2017-05-07] MEDS: Polyethylene Glycol 3350 17 GM Packet PO SCH (15:56)
[2017-05-07] MEDS: Cyclobenzaprine 10 MG TAB PO PRN (23:12)
[2017-05-08] MEDS ORDERED: HYDROcodone/Acetaminophen 5/325 mg Tablet PO SCH (02:00)
[2017-05-08] MEDS: Acetaminophen 325 MG TAB PO SCH ×2 (04:43→09:24)
[2017-05-08 08:43] VITALS: BP 115/72; TEMP 98.2
[2017-05-08 08:44] LABS: Anion Gap 11 mmol/L (10-20); BUN (Urea Nitrogen) 10 mg/dL (9.8-20.1); Calc. Creatinine Clearance 63 mL/min (70-130); Calcium 8.1 mg/dL (7.8-10.44); Carbon Dioxide 29 mmol/L (23-31); Chloride 100 mmol/L (98-107); Estimated GFR-MDRD 86; Phosphorus 3.4 mg/dL (2.3-4.7)
[2017-05-08] MEDS ORDERED: Acetaminophen/Codeine 30-300mg Tablet PO PRN (09:21)
[2017-05-08] MEDS: Enoxaparin Sodium 40 MG/0.4 ML SYRINGE SC SCH (09:22)
[2017-05-08] MEDS: ALPRAZolam 0.25 MG TAB PO SCH (09:23)
[2017-05-08] MEDS: Famotidine 20 MG TAB PO SCH (09:24)
[2017-05-08] MEDS: clonazePAM 0.5 MG TAB PO SCH (09:25)
[2017-05-08] MEDS: Polyethylene Glycol 3350 17 GM Packet PO SCH (09:25)
[2017-05-08] MEDS: Bupropion 150 MG XL TAB PO SCH (09:25)
[2017-05-08] MEDS: Senokot S 8.6-50 MG TAB PO SCH (09:26)
[2017-05-08] MEDS: Potassium Chloride 20 MEQ TAB PO SCH ×2 (11:15→14:23)
[2017-05-08] MEDS: Cyclobenzaprine 10 MG TAB PO PRN (11:28)
--- NOTE | 2017-05-08 13:30 | PDOC.PN ---
- Subjective Encounter Start Date: 05/08/17 Encounter Start Time: 10:20 Pt feeling much better, joking that she must be as she is more grumpy. No F/c, no N/V/DC, no CP, no SOB, no PND, no orthopnea. slept well after taking a hydrocodone/APAP. Did okay with PT. Vitals good, weaned off of O2. lasix discontinued 10 point ROS perfomred and neg for all systems except as per HPI - Objective Resuscitation Status: FULL MAR Reviewed: Yes Vital Signs & Weight: Vital Signs (12 hours) Temp Pulse Resp BP Pulse Ox 05/08/17 12:00 98.2 F 97 18 115/72 93 L 05/08/17 08:00 98.2 F 96 19 115/72 93 L 05/08/17 06:19 90 L 05/08/17 06:16 86 24 H 05/08/17 04:00 98.8 F 91 20 116/67 93 L 05/08/17 03:44 96 Weight Weight 150 lb 5.684 oz I&O: 05/07/17 05/08/17 05/09/17 06:59 06:59 06:59 Intake Total 500 1965 Balance 500 1965 Result Diagrams: 05/07/17 04:42 05/08/17 08:02 Radiology Reviewed by me: Yes EKG Reviewed by me: Yes Phys Exam - Physical Examination HEENT: PERRLA, moist MMs, sclera anicteric, oral pharynx no lesions Neck: no nodes, no JVD, supple, full ROM Respiratory: no wheezing, no rales, no rhonchi, clear to auscultation bilateral reg, occasional ectopy, 3/6 MARI [place], 3/6 HSM LLSB Gastrointestinal: soft, non-tender, no distention, positive bowel sounds Musculoskeletal: no edema, pulses present Neurological: non-focal, normal sensation, moves all 4 limbs Lymphatic: no nodes Psychiatric: normal affect, A&O x 3 Skin: no rash, normal turgor, cap refill <2 seconds Dx/Plan (1) Acute CHF (congestive heart failure) Code(s): I50.9 - HEART FAILURE, UNSPECIFIED Status: Acute Qualifiers: Congestive heart failure type: unspecified congestive heart failure type Qualified Code(s): I50.9 - Heart failure, unspecified Comment: Nl EF. mild diastolic dysfunction. increased Pulm artery pressure. mild to moderate , Mod to severe TR. BNP down to 600 11.11. controlled, to rehab today (2) Volume overload Code(s): E87.70 - FLUID OVERLOAD, UNSPECIFIED Status: Resolved Qualifiers: Hypervolemia type: other Qualified Code(s): E87.79 - Other fluid overload Comment: form IV fluids given for hypotension post op. Markedly improved (3) Acute hypoxemic respiratory failure Code(s): J96.01 - ACUTE RESPIRATORY FAILURE WITH HYPOXIA Status: Resolved Comment: Off o2. (4) Trimalleolar fracture of left ankle Code(s): S82.852A - DISPLACED TRIMALLEOLAR FRACTURE OF LEFT LOWER LEG, INIT Status: Resolved Qualifiers: Encounter type: initial encounter Fracture type: closed Qualified Code(s) : S82.852A - Displaced trimalleolar fracture of left lower leg, initial encounter for closed fracture Comment: to rehab today per trauma (5) Anxiety Code(s): F41.9 - ANXIETY DISORDER, UNSPECIFIED Status: Chronic Comment: clonazepam on hold while starting on hydrocodone (6) Postoperative hypotension Code(s): I95.89 - OTHER HYPOTENSION Status: Resolved - Plan plan discussed w/ family, PT/OT, out of bed/ambulate * .
--- NOTE | 2017-05-08 21:52 | DIS ---
DATE OF ADMISSION: 05/02/2017 DATE OF DISCHARGE: 05/08/2017 ADMISSION DIAGNOSES: 1. Status post ground level fall. 2. Acute traumatic pain. 3. Left trimalleolar fracture. 4. Right lateral malleolar fracture. 5. Anxiety. 6. Hyperlipidemia. DISCHARGE DIAGNOSES: 1. Status post ground level fall. 2. Acute traumatic pain. 3. Left trimalleolar fracture. 4. Right lateral malleolar fracture. 5. Anxiety. 6. Hyperlipidemia. 7. Hypotension, resolved. 8. Volume overload secondary to fluid resuscitation, resolved. 9. Valvular heart disease. CONSULTANTS: Guerrero Linton M.D., Orthopedic Surgery; David Gruber MD, Hospital Medicine. PROCEDURES: Operative intervention to left lower extremity injury 05/03/[address] Linton, [facility]. HOSPITAL COURSE: Marie Ornelas is an 89-year-old female who presented to [facility] status post fall. She was found to have the above injuries. She underwent operative intervention of her injuries with Orthopedic Surgery on 05/03/2017. Postoperatively, the patient had multiple e pisodes of hypotension that were treated with volume resuscitation and steroid therapy. Unfortunate ly, her hospital course was complicated by increasing shortness of breath and pulmonary edema after fluid resuscitation, on postoperative day #2. She was evaluated by a hospital medicine. She was di uresed. Volume status improved. Oxygen requirements were reduced. She received an echocardiogram which showed EF of 60-65% with diastolic dysfunction. Moderate to severe mitral regurgitation. Mil d to moderate aortic stenosis. Moderate tricuspid regurgitation, trace aortic insufficiency and mod erately elevated pulmonary artery pressures. She was deemed medically stable for discharge on 05/08. Therefore, she was discharged to inpatient rehabilitation. DISCHARGE DISPOSITION: Inpatient rehabilitation. DISCHARGE CONDITION: Fair. PHYSICAL EXAMINATION: VITAL SIGNS: Temperature 98.2, pulse 96, respirations 19, O2 sat 93% on 2 liters, blood pressure 11 5/72. GENERAL: Well-developed elderly appearing female in no acute distress, resting in bed. PULMONARY: Normal work of breathing, symmetric rise. CARDIOVASCULAR: Regular rate and rhythm: GASTROINTESTINAL: Abdomen is soft, nontender, nondistended. Bowel sounds positive. MUSCULOSKELETAL: Moves all extremities x4, bilateral lower extremity dressings clean, dry, and inta ct. NEUROLOGIC: No focal deficit noted. DISCHARGE INSTRUCTIONS: Discharge instructions were provided to the patient and the accepting facil ity. She is nonweightbearing on the left lower extremity and weightbearing as tolerated on the righ t lower extremity. She should maintain a heart healthy diet. She should ambulate with the use of a walker. She should continue PT and OT. FOLLOWUP APPOINTMENTS: The patient should follow up with Orthopedic Surgery once discharged from in patient rehabilitation. She is to [facility] She does not need follow up with Trauma services formally but may call our o ffice with any questions. Discharge medications as documented in the electronic medical record, a list of which was provided t o the accepting facility. This is merely a summary of the patient's hospitalization. For more in d [facility] information, please see her medical record in its entirety.
--- NOTE | 2017-05-09 15:20 | OP ---
DATE OF SURGERY: 05/03/2017 PREOPERATIVE DIAGNOSIS: Left trimalleolar ankle fracture. POSTOPERATIVE DIAGNOSIS: Left trimalleolar ankle fracture. SURGICAL PROCEDURE: Open reduction and internal fixation, left trimalleolar ankle fracture. ANESTHESIA: General. SURGEON: Guerrero Linton M.D. WIRE HARNESS ASSEMBLER: Derrick Quintana PA-C. TOURNIQUET TIME: 74 minutes at 300 mmHg. IMPLANTS: Synthes system was used with a 4-hole 2.7 mm variable angle LCP fibular plate and then ap propriate screws for plate stabilization as well as cancellous screws for the medial and posterior m alleoli. COMPLICATIONS: None. DRAINS: None. SPECIMEN: None. OUTCOME: Satisfactory. INDICATIONS: Patient is a pleasant 89-year-old lady status post ground level fall sustaining a very small right posterior aspect of lateral malleolar fracture as well as a significantly displaced lef t trimalleolar ankle fracture. The right side we are going to treat nonsurgically, but the left erika e given its significant involvement and displacement does require surgical stabilization. Informed consent has been obtained. I believe all questions answered. PROCEDURE IN DETAIL: After the induction of general anesthesia, the patient was positioned supine o n the OR table and then a sterile prep and drape was performed on the left lower extremity. Next, a lateral incision was made over the distal fibula. After skin was sharply incised, dissection was c arried down bluntly to the underlying fracture. The fracture hematoma was lavaged from the wound an d the fracture edges were freed of soft tissue to allow for reduction. Reduction was obtained and h eld in place with bone tenaculum and then an anterior to posterior interfragmentary screw was applie d in standard fashion. This was then followed by application of a 2.7 mm variable angle LCP 4-hole plate as a neutralization device to the lateral cortex of the distal fibula. This was held in place with a combination of 3.5 and 2.7 mm cortical screws proximally and then 2.7 mm locking screws dist ally. At the completion of this, the mortise had been reduced. Next, a second incision was made me dially overlying the medial malleolus. Blunt dissection was then carried down to the fracture fragm ent. The fracture was held in place, reduced with a bone tenaculum and then two 4.0 mm cancellous s crews were passed from the tip of the medial malleolus up into the distal tibial metaphysis, getting good compression of the medial malleolar fracture line. After completion of this, the posterior ma lleolar fragment was found to be reduced. This occurring with anatomic reduction of the lateral mal leolus. Given the size of this fragment; however, it was felt that stabilization was warranted. As such, two small stab wounds were placed anteriorly and then front to back lag screws were applied i n standard fashion, again using cancellous screws. At the completion of this, AP, lateral and morti se x-rays were found to be remarkable for anatomic alignment of all three fracture fragments. As bowling ch, the wounds were irrigated with bulb syringe and closed in layers. The two anterior incisions we re closed with dante. The lateral incision was closed in layers with 0 Vicryl deep, followed by 2 -0 Vicryl and then dante. The medial side also closed with 2-0 Vicryl and dante. Xeroform gauz e, Webril, and fiberglass splint was then applied to the ankle and then the tourniquet was let down at a total time of 74 minutes. The patient was then transferred to the recovery room in stable cond ition. There were no complications. She tolerated the procedure well.
== END 2017-05-08 15:21 | DRG 492 ==
LOC: ERS 16:04 → SJJU 18:09
PROVIDERS: ADMIT Orthopaedic Surgery; ATTEND Orthopaedic Surgery
PROC: 0QSK04Z Reposition Left Fibula with Internal Fixation Device, Open Approach (ICD-10-PCS; principal; 2017-05-03)
PROC: 0QSH04Z Reposition Left Tibia with Internal Fixation Device, Open Approach (ICD-10-PCS; 2017-05-03)
PROC: 3E0T3BZ Introduction of Anesthetic Agent into Peripheral Nerves and Plexi, Percutaneous Approach (ICD-10-PCS; 2017-05-03)
PROC: 3E0T33Z Introduction of Anti-inflammatory into Peripheral Nerves and Plexi, Percutaneous Approach (ICD-10-PCS; 2017-05-03)
DX: S82.852A Displaced trimalleolar fracture of left lower leg, initial encounter for closed fracture (principal); J96.01 Acute respiratory failure with hypoxia; E87.70 Fluid overload, unspecified; I50.9 Heart failure, unspecified; E78.5 Hyperlipidemia, unspecified; S82.64XA Nondisplaced fracture of lateral malleolus of right fibula, initial encounter for closed fracture; Z91.81 History of falling; F41.9 Anxiety disorder, unspecified; Z88.8 Allergy status to other drugs, medicaments and biological substances; G89.11 Acute pain due to trauma; I95.81 Postprocedural hypotension; I08.3 Combined rheumatic disorders of mitral, aortic and tricuspid valves; R00.0 Tachycardia, unspecified; W01.0XXA Fall on same level from slipping, tripping and stumbling without subsequent striking against object, initial encounter
CPT/HCPCS: 36415; 71010; 76001; 80048; 80053; 82533; 82553; 83735; 83880; 84100; 84484; 85025; 85610; 85730; 93005; 93010; 93306; 94640; A4216; A4306; C1713; G0390; G8978-GP-CL; G8979-GP-CK; G8987-GO-CL; G8988-GO-CJ; J0690; J1100; J1200; J1650; J1720; J1885; J1940; J2001; J2250; J2270; J2274; J2405; J2704; J2795; J3010; J7620; P9045; S0020; S0028